=== PATIENT | female | born 1960 | race Native Hawaiian/Other Pacific Islander ===

== ENCOUNTER 2017-11-18 07:50 | Day surgery (SDC) | payer OTHER ==
[2017-11-18 08:22] LABS: PLATELET COUNT 337 K/uL (152-353)
== END 2017-11-18 10:42 | disposition home or self-care (01) ==
LOC: OR 07:50
PROVIDERS: Student in an Organized Health Care Education/Training Program
PROC: 0DBK8ZX Excision of Ascending Colon, Via Natural or Artificial Opening Endoscopic, Diagnostic (ICD-10-PCS; principal; 2017-11-18)
PROC: 0DBN8ZX Excision of Sigmoid Colon, Via Natural or Artificial Opening Endoscopic, Diagnostic (ICD-10-PCS; 2017-11-18)
PROC: 0DBP8ZX Excision of Rectum, Via Natural or Artificial Opening Endoscopic, Diagnostic (ICD-10-PCS; 2017-11-18)
PROC: 0DBM8ZX Excision of Descending Colon, Via Natural or Artificial Opening Endoscopic, Diagnostic (ICD-10-PCS; 2017-11-18)
PROC: 0DBH8ZX Excision of Cecum, Via Natural or Artificial Opening Endoscopic, Diagnostic (ICD-10-PCS; 2017-11-18)
DX: K63.5 Polyp of colon (principal); K64.8 Other hemorrhoids; Z12.11 Encounter for screening for malignant neoplasm of colon
CPT/HCPCS: 85027; J2001; J2250; J2704

== ENCOUNTER 2017-12-17 14:10 | Outpatient (CLI) | payer OTHER | END 2017-12-17 19:25 | disposition home or self-care (01) | LOC: US 14:10 | DX: R10.11 Right upper quadrant pain (principal) ==

== ENCOUNTER 2019-03-22 11:48 | Outpatient (CLI) | payer OTHER | END 2019-03-22 20:12 | disposition home or self-care (01) | LOC: RAD 11:48 | DX: M79.662 Pain in left lower leg (principal) ==

== ENCOUNTER 2019-11-15 10:37 | Outpatient (CLI) | payer OTHER | END 2019-11-15 19:17 | disposition home or self-care (01) | LOC: RAD 10:37 | DX: M79.671 Pain in right foot (principal); M25.571 Pain in right ankle and joints of right foot ==

== ENCOUNTER 2022-01-30 10:38 | Outpatient (CLI) | payer OTHER | END 2022-01-30 19:38 | disposition home or self-care (01) | LOC: RAD 10:38 | PROVIDERS: ATTEND Registered Nurse | DX: R07.89 Other chest pain (principal) ==

== ENCOUNTER 2022-08-07 09:21 | Outpatient (CLI) | payer OTHER | END 2022-08-07 19:19 | disposition home or self-care (01) | LOC: RAD 09:21 | PROVIDERS: ATTEND Nurse Practitioner | DX: M79.645 Pain in left finger(s) (principal) ==